=== PATIENT | male | born 1960 | race Caucasian/White ===

== ENCOUNTER 2016-05-26 11:57 | Emergency (ER) | payer OTHER, BC ==
--- NOTE | 2016-05-26 12:31 | ER Document Report ---
HPI - HPI Patient complains to provider of: right shoulder pain Pain Level: 3 Context: Patient is a 56-year-old male presents emergency department complaining of right shoulder pain. Patient states that he was climbing in the truck bed of a truck when he slipped and fell and landed on his right shoulder. Admits to pain with movement. Denies any previous injury to that shoulder previous surgeries. Has full sensation and range of motion in his right upper extremity below the shoulder. Past medical history significant for diabetes, hypertension, hyperlipidemia Primary care physician is Dr. Eva Sanchez. No known drug allergies - CARDIOVASCULAR Cardiovascular: DENIES: Chest pain - DERM Skin Color: Normal Past Medical History - Social History Smoking Status: Never Smoker Chew tobacco use (# tins/day): No Frequency of alcohol use: Occasional Drug Abuse: None Family History: Reviewed & Not Pertinent Patient has suicidal ideation: No Patient has homicidal ideation: No - Past Medical History Cardiac Medical History: Reports: Hx Hypertension Endocrine Medical History: Reports: Hx Diabetes Mellitus Type 2 Renal/ Medical History: Denies: Hx Peritoneal Dialysis Skin Medical History: Reports Hx MRSA - MRSA 01/20 ABDOMEN Infectious Medical History: Reports: Hx MRSA Surgical Hx: Negative - Immunizations Immunizations up to date: No Hx Diphtheria, Pertussis, Tetanus Vaccination: No Vertical Provider Document - CONSTITUTIONAL Agree With Documented VS: Yes Exam Limitations: No Limitations General Appearance: WD/WN, No Apparent Distress Notes: PHYSICAL EXAM GENERAL: Alert, interacts well. HEAD: Normocephalic, atraumatic. EYES: Pupils equal, round, and reactive to light. Extraocular movements intact. ENT: Oral mucosa moist, tongue midline. NECK: Full range of motion. Supple. Trachea midline. LUNGS: Clear to auscultation bilaterally, no wheezes, rales, or rhonchi. No respiratory distress. HEART: Regular rate and rhythm. No murmurs, gallops, or rubs. ABDOMEN: Soft, nondistended, nontender. No guarding, rebound, or rigidity.. Bowel sounds present in all 4 quadrants. EXTREMITIES: right arm in a sling, full ROM of right hand, manager facility strength 5/5 b/ l. No edema, radial and dorsalis pedis pulses 2/4 bilaterally. No cyanosis. cap refill < 2 seconds yoan. NEUROLOGICAL: Alert and oriented x4. Normal speech. PSYCH: Normal affect, normal mood. SKIN: Warm, dry, normal turgor. No rashes or lesions noted. - INFECTION CONTROL TRAVEL OUTSIDE OF THE [place] IN LAST 30 DAYS: No - RESPIRATORY O2 Sat by Pulse Oximetry: 98 Course - Re-evaluation Re-evalutation: 05/26/16 13:04 No evidence of fracture or dislocation on x-ray. Discharged home with instruction for ice and NSAIDs for pain. Follow-up with [facility] physician on Sunday. - Vital Signs Vital signs: Temp Pulse Resp BP Pulse Ox 98.5 F 105 H 17 135/90 H 98 05/26/16 12:01 05/26/16 12:01 05/26/16 12:01 05/26/16 12:01 05/26/16 12:01 - Diagnostic Test Radiology reviewed: Image reviewed, Reports reviewed Discharge - Discharge Clinical Impression: Right shoulder pain Condition: Good Disposition: HOME, SELF-CARE Instructions: Shoulder Injury ([facility]), Exercise Program for the Shoulder ([facility]), Use of [id number]-[id number] Ibuprofen ([facility]), Ice Packs ([facility]) Forms: Elevated Blood Pressure, Return to Work Referrals: ZULLY SANCHEZ MD [Primary Care Provider] - Follow up as needed
[2016-05-26] MEDS ORDERED: IBUPROFEN 800 MG TABLET PO ONE (13:05)
[2016-05-26 13:17] VITALS: BP 127/74
== END 2016-05-26 13:17 | disposition home or self-care (01) ==
LOC: ER 11:57
DX: M25.511 Pain in right shoulder (principal); W18.30XA Fall on same level, unspecified, initial encounter; I10 Essential (primary) hypertension; E11.9 Type 2 diabetes mellitus without complications; Z86.14 Personal history of Methicillin resistant Staphylococcus aureus infection
CPT/HCPCS: 99283

== ENCOUNTER → 2016-07-26 | Outpatient (CLI) | payer OTHER ==
--- NOTE | 2016-07-26 14:31 | RADIOLOGY REPORT (SQ) ---
EXAM DESCRIPTION: MRI RT UPPER JOINT WITHOUT COMPLETED DATE/TIME: 07/26/2016 12:08 pm REASON FOR STUDY: PAIN IN RIGHT SHOULDER M25.511 PAIN IN RIGHT SHOULDER COMPARISON: Recent radiographs from 05/26/2016. TECHNIQUE: Right shoulder images acquired and stored on PACS. Multiplanar imaging to include fat sen sitive sequences such as T1, water sensitive sequences such as FST2/STIR, cartilage sensitive sequenc es such as FSPD/gradient-echo sequences. LIMITATIONS: None. FINDINGS: BONE MARROW AND CORTEX: No fracture or bone lesion. JOINT OR BURSAL EFFUSION: Joint effusion without loose bodies. This communicates with the subacromia l subdeltoid bursa. GLENO-HUMERAL ARTICULATION: No focal chondral defects. Minimal osteophytes. ACROMION AND AC JOINT: Mild dorsal hypertrophic scratch at mild dorsal degenerative overgrowth with m inimal fluid in the joint. Minimal undersurface osteophytes with loss of the subacromial space. ROTATOR CUFF AND INTERVAL: Full-thickness supraspinatus tear. Mild retraction to approximately the l evel of the AC joint. Thickening and tendinosis in the subscapularis. Mild upper subscapularis part ial tear may be present. Additional tendinosis in the infraspinatus. LABRUM AND BICEPS LABRAL COMPLEX: No overt slap tear or biceps disruption. Biceps looks slightly p erched on the upper aspect of the greater tuberosity. REMAINDER OF LABRUM AND IGHL : Relatively intact. Suspect some degenerative fraying in the anterior inferior labrum. PERIARTICULAR AND ADJACENT SOFT TISSUES: No masses or abnormal nodes. OTHER: No other significant finding. IMPRESSION: 1. Full-thickness partial width cuff tear with retraction, supraspinatus. Tendinosis an d partial tear in the subscapularis. This likely explains mild biceps subluxed appearance. Tendinos is in the infraspinatus. 2. No fracture. TECHNICAL DOCUMENTATION: JOB ID: [id number] [id number]- All Rights Reserved
== END ==
LOC: RAD 11:06
PROVIDERS: ATTEND Family Medicine
DX: M25.511 Pain in right shoulder (principal); M75.121 Complete rotator cuff tear or rupture of right shoulder, not specified as traumatic

== ENCOUNTER → 2016-08-21 | Outpatient (CLI) | payer OTHER ==
[2016-08-21 18:33] LABS: ABSOLUTE EOSINOPHILS # (AUTO) 0.7 10^3/uL (0.0-0.6); ABSOLUTE NEUT (AUTO) 5.3 10^3/uL (1.7-8.2); BASOPHILS % (AUTO) 0.5 % (0-2); EOSINOPHILS % (AUTO) 7.5 % (0-6); HEMATOCRIT 44.4 % (37.9-51.0); HEMOGLOBIN 15.1 g/dL (13.5-17.0); HGB HCT DIFFERENCE 0.9; LYMPHOCYTES % (AUTO) 21.7 % (13-45); MEAN CORPUSCULAR HEMOGLOBIN 29.9 pg (27.0-33.4); MEAN CORPUSCULAR HGB CONC 33.9 g/dL (32.0-36.0); MEAN CORPUSCULAR VOLUME 88 fl (80-97); MONOCYTES % (AUTO) 11.2 % (3-13); RED BLOOD COUNT 5.04 10^6/uL (4.35-5.55); RED CELL DISTRIBUTION WIDTH 13.4 % (11.5-14.0); SEGMENTED NEUTROPHILS % (AUTO) 59.1 % (42-78)
[2016-08-21 18:52] LABS: ANION GAP 11 (5-19); BLOOD UREA NITROGEN 15 mg/dL (7-20); CALCIUM 8.8 mg/dL (8.4-10.2); CARBON DIOXIDE 23 mmol/L (22-30); CHLORIDE 98 mmol/L (98-107); GLUCOSE 363 mg/dL (75-110); POTASSIUM 4.1 mmol/L (3.6-5.0); SODIUM 132.3 mmol/L (137-145)
--- NOTE | 2016-08-21 21:05 | EKG REPORT ---
SEVERITY:- BORDERLINE ECG - SINUS RHYTHM LATE TRANSITION : Confirmed by: Fili Moya MD 21-Aug-2016 21:04:31
== END ==
LOC: OD 17:14
PROVIDERS: ATTEND Orthopaedic Surgery
DX: E11.9 Type 2 diabetes mellitus without complications (principal)
CPT/HCPCS: 36415; 80048; 83036; 85025; 93005; 93010

== ENCOUNTER → 2016-11-10 | Outpatient (CLI) | payer SELFPAY ==
[2016-11-10 15:33] LABS: ABSOLUTE BASOPHILS # (AUTO) 0.1 10^3/uL (0.0-0.2); ABSOLUTE EOSINOPHILS # (AUTO) 0.6 10^3/uL (0.0-0.6); ABSOLUTE LYMPHOCYTES (AUTO) 1.7 10^3/uL (0.5-4.7); ABSOLUTE MONOCYTES (AUTO) 0.9 10^3/uL (0.1-1.4); BASOPHILS % (AUTO) 0.6 % (0-2); EOSINOPHILS % (AUTO) 6.2 % (0-6); HEMATOCRIT 40.5 % (37.9-51.0); HEMOGLOBIN 14.5 g/dL (13.5-17.0); LYMPHOCYTES % (AUTO) 18.6 % (13-45); MEAN CORPUSCULAR HEMOGLOBIN 30.5 pg (27.0-33.4); MEAN CORPUSCULAR HGB CONC 35.8 g/dL (32.0-36.0); MEAN CORPUSCULAR VOLUME 85 fl (80-97); RED BLOOD COUNT 4.76 10^6/uL (4.35-5.55); RED CELL DISTRIBUTION WIDTH 12.8 % (11.5-14.0); SEGMENTED NEUTROPHILS % (AUTO) 64.6 % (42-78); WHITE BLOOD COUNT 9.2 10^3/uL (4.0-10.5)
[2016-11-10 15:42] LABS: ANION GAP 12 (5-19); BLOOD UREA NITROGEN 14 mg/dL (7-20); CALCIUM 9.8 mg/dL (8.4-10.2); CARBON DIOXIDE 28 mmol/L (22-30); CHLORIDE 97 mmol/L (98-107); CREATININE RESULT 1.17 mg/dL (0.52-1.25); GLUCOSE 177 mg/dL (75-110); POTASSIUM 4.4 mmol/L (3.6-5.0); SODIUM 136.6 mmol/L (137-145)
== END ==
LOC: OD 14:21
PROVIDERS: ATTEND Orthopaedic Surgery
DX: E11.9 Type 2 diabetes mellitus without complications (principal)
CPT/HCPCS: 36415; 80048; 83036; 85025